=== PATIENT | female | born 1935 | race Caucasian/White ===

== ENCOUNTER 2016-05-19 10:55 | Day surgery (SDC) | payer MEDICARE, BC ==
[~2016-05-19 10:55] MED LIST: Lactated Ringers 1,000 ML IV SCH; Sodium Chloride 0.9% 10 ML Syringe FLUSH PRN
--- NOTE | 2016-05-19 11:57 | PCM.PN ---
- General Info Date of Service: 05/19/16 - Review of Systems Systems Review Comment:: 80-year-old female here for upper lower endoscopy. It has been over 10 years since her last colon exam. She denies any recent change in bowel habits. She does have a history of acid reflux symptoms. These are noticeable to her if she does not take her omeprazole. She is medically stable to proceed today. There is been no significant change in her health status since her recent exam. I have discussed the proposed upper and lower endoscopy with the patient. Risks such as but not limited to bleeding and GI injury or reviewed. She appears to understand and agrees to proceed. - Patient Data Vitals - most recent: Last Vital Signs Temp 98.3 F 05/19/16 11:23 Pulse 98 05/19/16 11:23 Resp 20 05/19/16 11:23 BP 150/76 H 05/19/16 11:23 Pulse Ox 98 05/19/16 11:23 Weight - most recent: 77.564 kg Med Orders - Current: Current Medications Lactated Ringer's (Ringers, Lactated) 1,000 mls @ 125 mls/hr IV ASDIRECTED [facility] Last Admin: 05/19/16 11:22 Dose: 125 mls/hr Sodium Chloride (Saline Flush) 10 ml FLUSH ASDIRECTED PRN PRN Reason: Keep Vein Open - Problem List Review Problem List Initiated/Reviewed/Updated: Yes - Assessment Assessment:: GERD Colon cancer screening - Plan Plan:: Upper endoscopy Colonoscopy
[2016-05-19] MEDS ORDERED: fentaNYL 100 MCG/2 ML SDV ONE ×2 (11:58→12:00)
[2016-05-19] MEDS ORDERED: Propofol 200 MG/20 ML SDV ONE ×2 (11:58→12:00)
[2016-05-19] MEDS ORDERED: Midazolam 1 MG/ML 2 ML SDV ONE ×2 (11:58→12:00)
[2016-05-19] MEDS ORDERED: Lidocaine 2% 5 ML SDV ONE (12:00)
--- NOTE | 2016-05-19 12:48 | PCM.OPNOTE ---
- General Post-Op/Procedure Note Date of Surgery/Procedure: 05/19/16 Operative Procedure(s): EGD with Biopsy and Colonoscopy with polyp removal Findings: Normal appearing upper endoscopy Small ascending colon polyp Pre Op Diagnosis: GERD. Colon Cancer Screening Post-Op Diagnosis: Normal upper endoscopy. Colon Polyp Anesthesia Technique: MAC Primary Surgeon: Mikel Alberto Pathology: Biopsies of antrum Ascending Colon Polyp Output, Urine Amount: 0 EBL in mLs: 3 Complications: None Condition: Good Free Text/Narrative:: Intake & Output 05/18/16 05/19/16 05/19/16 22:59 06:59 14:59 Intake Total 700 Balance 700
[2016-05-19 15:52] VITALS: BP 131/65
--- NOTE | 2016-05-19 15:54 | OR ---
Date of Procedure: 05/19/2016 PREOPERATIVE DIAGNOSES: Gastroesophageal reflux disease and colon cancer screening. POSTOPERATIVE DIAGNOSES: Normal upper endoscopy and ascending colon polyp. OPERATION PERFORMED: Esophagogastroduodenoscopy with biopsy and colonoscopy with polyp removal. INDICATIONS FOR SURGERY: This 80-year-old female, who has been having symptoms of GERD. She has been taking omeprazole to control these symptoms, but when she does not take this symptoms return and a diagnostic upper endoscopy was planned. It is also been over 10 years since her last colonoscopy and she comes for this exam. FINDINGS: The patient's esophagus, stomach, and duodenum appeared normal on upper endoscopy. There is no visible signs of inflammation or ulcers. The Z- line is distinct without visible evidence of acute inflammation or damage from acid reflux. On colonoscopy, the patient has a single small flat polyp in the ascending colon, this is 5 mm in size. The remainder of the colon appears normal. PROCEDURE IN DETAIL: The patient was taken to the operating room. She was given intravenous sedation and with her in the left lateral decubitus position, the esophagus is intubated with the Olympus gastroscope. The scope was then carefully advanced through the esophagus, stomach and into the duodenum where examination to the third portion is performed. After carefully examining the duodenum, the scope was withdrawn back up into the stomach where full examination, including retroflexed examination of the fundus was performed. Biopsies of the antrum were taken to rule out H. pylori. The GE junction and esophagus are then examined as the scope was withdrawn. The attention was then turned to colonoscopy. Digital rectal exam shows no rectal masses. The Olympus colonoscope was inserted into the rectum, retroflexed examination of the rectal canal was performed. The scope was then carefully advanced under direct visualization through the entire length of the colon until cecum was reached. Cecal acquisition was confirmed by noting the normal internal cecal anatomy including the appendiceal orifice and ileocecal valve. The light was also noted to transilluminate the abdominal wall in the right lower quadrant. After examining the cecum, the scope was slowly withdrawn and in the ascending colon, the above-described polyp was identified. This was removed grossly in its entirety with multiple bites of the biopsy forceps. No evidence of bleeding or other complication was noted at this polypectomy site. The scope was then slowly withdrawn sequentially re-examining the remaining colonic segments until the entire colon and rectum had been fully examined. The scope was removed and the patient was taken from the operating room in satisfactory condition. ESTIMATED BLOOD LOSS: 3 mL. COMPLICATIONS: None. PROGNOSIS: Good. MARIALUISA Alberto MD /[id number]
== END 2016-05-19 14:04 | disposition home or self-care (01) ==
LOC: LL.SDS 10:55
PROVIDERS: ATTEND Surgery
DX: Z12.11 Encounter for screening for malignant neoplasm of colon (principal); D12.2 Benign neoplasm of ascending colon; K29.50 Unspecified chronic gastritis without bleeding; I65.29 Occlusion and stenosis of unspecified carotid artery; E78.5 Hyperlipidemia, unspecified; E55.9 Vitamin D deficiency, unspecified; Z88.1 Allergy status to other antibiotic agents; Z98.890 Other specified postprocedural states; Z96.652 Presence of left artificial knee joint; Z79.82 Long term (current) use of aspirin; Z79.899 Other long term (current) drug therapy
CPT/HCPCS: 00740; 43239; 45380; 88305; 88342; J2250; J2704; J3010; J7120

== ENCOUNTER 2021-09-19 09:44 | Emergency (ER) | payer MEDICARE, BC ==
[2021-09-19] MEDS ORDERED: Lidocaine 2% with EPINEPHrine 1:100,000 20 ML MDV INJECT ONE (09:50)
[2021-09-19] MEDS ORDERED: Bacitracin/Neomycin/Polymyxin B Oint 0.9 GM U/D Packet TOP ONE (10:08)
[2021-09-19 10:30] VITALS: BP 161/74; PULSE 70
== END 2021-09-19 11:00 | disposition home or self-care (01) ==
LOC: LL.ED 09:44
DX: S01.01XA Laceration without foreign body of scalp, initial encounter (principal); E78.00 Pure hypercholesterolemia, unspecified; K21.9 Gastro-esophageal reflux disease without esophagitis; M19.90 Unspecified osteoarthritis, unspecified site; Z88.1 Allergy status to other antibiotic agents; Z79.82 Long term (current) use of aspirin; Z79.899 Other long term (current) drug therapy; W01.198A Fall on same level from slipping, tripping and stumbling with subsequent striking against other object, initial encounter; Y92.009 Unspecified place in unspecified non-institutional (private) residence as the place of occurrence of the external cause
CPT/HCPCS: 12002; 70450; 99283; 99283-25

== ENCOUNTER 2021-12-01 16:02 | Emergency (ER) | payer MEDICARE, BC ==
[2021-12-01 16:55] VITALS: BP 151/72; PULSE 66
[2021-12-01 17:46] LABS: ANION GAP 13.9 meq/L (7-15); CHLORIDE,CL 95 mmol/L (98-107); ESTIMATED GFR 58 mL/min (>=60); SODIUM,NA 130 mmol/L (136-145)
== END 2021-12-01 18:40 | disposition home or self-care (01) ==
LOC: LL.ED 16:02
DX: R55 Syncope and collapse (principal); I16.0 Hypertensive urgency; I10 Essential (primary) hypertension; Z88.1 Allergy status to other antibiotic agents; Z79.899 Other long term (current) drug therapy; Z79.82 Long term (current) use of aspirin
CPT/HCPCS: 36415; 80053; 85025; 99284